=== PATIENT | male | born 1930 | race Caucasian/White ===

== ENCOUNTER 2016-12-10 09:43 | Emergency (ER) | payer OTHER ==
[~2016-12-10] VITALS: Ht 175.3 cm; Wt 83.0 kg
[2016-12-10 09:45] VITALS: BP 186/89; PULSE 85; RESP 18; TEMP 99.2; O2SAT 96
[2016-12-10] MEDS ORDERED: ALLO100T PO (09:58)
[2016-12-10] MEDS ORDERED: ATOR10TA15 PO (09:58)
[2016-12-10] MEDS ORDERED: MULTTAB67 PO (09:58)
[2016-12-10] MEDS ORDERED: LISI-515 PO (09:58)
[2016-12-10 10:45] LABS: BASOPHIL # 0.1 TH/MM3 (0-0.2); BASOPHIL % 1.2 % (0.0-2.0); EOSINOPHIL # 0.3 TH/MM3 (0-0.4); EOSINOPHIL % 4.5 % (0.0-4.0); HEMATOCRIT 49.1 % (39.0-51.0); HEMO FLAGS DIFF FINAL; LYMPH % 18.9 % (9.0-44.0); LYMPHOCYTE # 1.1 TH/MM3 (1.0-4.8); MEAN CELL VOLUME 96.9 FL (80.0-100.0); MEAN CORPUSCULAR HEMOGLOBIN 31.5 PG (27.0-34.0); MEAN CORPUSCULAR HGB CONC 32.5 % (32.0-36.0); MONO % 7.9 % (0.0-8.0); NEUT % 67.5 % (16.0-70.0); PLATELET COUNT 143 TH/MM3 (150-450); RED BLOOD COUNT 5.06 MIL/MM3 (4.50-5.90); RED CELL DISTRIBUTION WIDTH 14.7 % (11.6-17.2)
--- NOTE | 2016-12-10 10:48 | PD ---
HPI . Right inguinal mass Chief Complaint: Flank/Kidney Pain Time Seen by Provider: 10:22 Travel History International Travel<30 days: No Contact w/Intl Traveler<30days: No Traveled to known affect area: No History of Present Illness HPI Patient presents with the chief complaint of a right inguinal mass. He states that he had gotten up during the middle the night to go to the bathroom. When he laid back down on the bed he noticed a mass in the right inguinal area. He states that he mashed on it and that it felt like that it had water in it and that it was moving. He reports no pain associated with it. The patient is also complaining with intermittent bilateral flank pain which is mild and which is relieved by either Tylenol or aspirin. He said he does not currently have flank pain. He is also complaining with symptoms related to BPH. He reports nocturia, decreased urinary volume and the feeling like he is not completely emptying his bladder. He states that he is on medication for this but he did not bring it with him and he does not know the name of it. Lastly, he would like for me to check his legs. They are discolored. They have been this way for a long time. They do not hurt. PFSH Past Medical History High Cholesterol: Yes Diabetes: Yes Patient Takes Glucophage: No Hypertension: Yes Triglycerides - High: Yes Past Surgical History Other Surgery: Yes (CYSTOSCOPY, LITHOTRIPSY?) Social History Alcohol Use: Yes (OCC) Tobacco Use: No Substance Use: No Allergies-Medications (Allergen,Severity, Reaction): Coded Allergies: No Known Allergies (Unverified , 12/10/16) Reported Meds & Prescriptions Reported Meds & Active Scripts Active Reported Multiple Vitamin 1 Tab 1 Tab PO DAILY Atorvastatin (Atorvastatin Calcium) 10 Mg Tab 10 Mg PO HS Allopurinol 100 Mg Tab 100 Mg PO DAILY Lisinopril 20 Mg Tab 20 Mg PO DAILY Review of Systems Except as stated in HPI: all other systems reviewed are Neg General / Constitutional: No: Fever, Chills Gastrointestinal: Positive: Other (right inguinal mass), No: Nausea, Vomiting , Diarrhea, Loss of Appetite Genitourinary: Positive: Urgency, Frequency, Nocturia, Decreased Urinary Output , Hesitancy, Flank Pain, No: Dysuria Skin: Positive Change in Pigmentation Physical Exam Narrative GENERAL: Healthy-appearing elderly man who is in no acute distress. SKIN: Warm and dry. He has skin changes to his lower extremities compatible with peripheral vascular disease. HEAD: Atraumatic. Normocephalic. EYES: Pupils equal and round. Extraocular movements are intact. ENT: No nasal bleeding or discharge. Mucous membranes pink and moist. NECK: Trachea midline. Neck is supple. CARDIOVASCULAR: Regular rate and rhythm. RESPIRATORY: No accessory muscle use. GASTROINTESTINAL: Abdomen soft, non-tender, nondistended. He has an easily reducible right inguinal hernia. It is not tender. MUSCULOSKELETAL: No obvious deformities. No edema. No back tenderness. NEUROLOGICAL: Awake and alert. No obvious cranial nerve deficits. Motor grossly within normal limits. Normal speech. PSYCHIATRIC: Appropriate mood and affect; insight and judgment normal. Data Data Last Documented VS Vital Signs Date Time Temp Pulse Resp B/P Pulse Ox O2 Delivery O2 Flow Rate FiO2 12/10/16 09:54 17 12/10/16 09:45 99.2 85 186/89 96 Room Air Orders Basic Metabolic Panel (Bmp) (12/10/16 09:53) Complete Blood Count With Diff (12/10/16 09:53) Ua Includes Microscopic (12/10/16 09:53) Ct Abd/Pel W/O Iv Contrast (12/10/16 09:53) Labs Laboratory Tests Test 12/10/16 12/10/16 10:15 11:10 White Blood Count 6.0 TH/MM3 Red Blood Count 5.06 MIL/MM3 Hemoglobin 15.9 GM/DL Hematocrit 49.1 % Mean Corpuscular Volume 96.9 FL Mean Corpuscular Hemoglobin 31.5 PG Mean Corpuscular Hemoglobin 32.5 % Concent Red Cell Distribution Width 14.7 % Platelet Count 143 TH/MM3 Mean Platelet Volume 9.9 FL Neutrophils (%) (Auto) 67.5 % Lymphocytes (%) (Auto) 18.9 % Monocytes (%) (Auto) 7.9 % Eosinophils (%) (Auto) 4.5 % Basophils (%) (Auto) 1.2 % Neutrophils # (Auto) 4.0 TH/MM3 Lymphocytes # (Auto) 1.1 TH/MM3 Monocytes # (Auto) 0.5 TH/MM3 Eosinophils # (Auto) 0.3 TH/MM3 Basophils # (Auto) 0.1 TH/MM3 CBC Comment DIFF FINAL Differential Comment Sodium Level 140 MEQ/L Potassium Level 4.3 MEQ/L Chloride Level 106 MEQ/L Carbon Dioxide Level 25.8 MEQ/L Anion Gap 8 MEQ/L Blood Urea Nitrogen 19 MG/DL Creatinine 0.99 MG/DL Estimat Glomerular Filtration 72 ML/MIN Rate Random Glucose 125 MG/DL Calcium Level 9.2 MG/DL Urine Color YELLOW Urine Turbidity CLEAR Urine pH 5.0 Urine Specific [place] 1.017 Urine Protein NEG mg/dL Urine Glucose (UA) NEG mg/dL Urine Ketones NEG mg/dL Urine Occult Blood NEG Urine Nitrite NEG Urine Bilirubin NEG Urine Urobilinogen LESS THAN 2.0 MG/DL Urine Leukocyte Esterase NEG Urine RBC LESS THAN 1 /hpf Urine WBC 1 /hpf Urine Mucus FEW /lpf MDM Medical Decision Making Medical Screen Exam Complete: Yes Emergency Medical Condition: Yes Differential Diagnosis My differential diagnosis of groin pain includes but is not limited to groin strain, lymphadenopathy, hernia, epididymitis, testicular torsion Narrative Course Patient presents with multiple problems. His chief complaint is actually the mass in the right inguinal area which is a hernia. I have ordered a CBC, basic metabolic panel, UA and CT. I anticipate discharge to home with outpatient follow-up with the surgeon. Last Impressions Abdomen/Pelvis CT 12/10/16 0953 Signed Impressions: Service Date/Time: Saturday, December 10, 2016 10:37 - CONCLUSION: 1. There are 3 punctate nonobstructing stone seen in the collecting system of the right kidney. These all measure approximately 1-2 mm in size. 2. There are 3 stones seen within the left kidney as described above. The largest measures 1 cm. 3. Bilateral inguinal hernias larger on the right than the left. 4. Mild enlargement of the prostate. 5. Cardiomegaly. 6. 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 7. Degenerative changes throughout the spine. Kane Johnson MD CBC & BMP Diagram 12/10/16 10:15 UA is negative. Diagnosis Primary Impression: Right inguinal hernia Patient Instructions: General Instructions, Inguinal Hernia (DC) Additional Instructions: Call the [facility] for referral to a general surgeon. Disposition: 01 DISCHARGE HOME Condition: Stable Suma Coto MD Dec 10, 2016 10:48
[2016-12-10 10:55] LABS: BICARBONATE 25.8 MEQ/L (21.0-32.0); POTASSIUM 4.3 MEQ/L (3.5-5.1)
--- NOTE | 2016-12-10 11:03 | RADRPT ---
EXAM DATE/TIME: 12/10/2016 10:37 [facility] COMPARISON: No previous studies available for comparison. INDICATIONS : Intermittent bilateral flank pain for six months, now complains of urinary urgency. ORAL CONTRAST: No oral contrast ingested. RADIATION DOSE: 9.96 CTDIvol (mGy) MEDICAL HISTORY : Hypertension. Diabetes mellitus type 2. SURGICAL HISTORY : Lithotripsy. ENCOUNTER: Initial ACUITY: 1 week PAIN SCALE: 4/10 LOCATION: Bilateral flank TECHNIQUE: Volumetric scanning of the abdomen and pelvis was performed. Using automated exposure control and ad justment of the mA and/or kV according to patient size, radiation dose was kept as low as reasonably achievable to obtain optimal diagnostic quality images. FINDINGS: The limited portion of lung base visualized demonstrate COPD changes but is otherwise clear. There is mild cardiomegaly. Right kidney/ureter: The right kidney is normal in size. There is no hydronephrosis. There are 3 punctate stones seen with in the collecting system. The largest measures approximately 1 mm. The right ureter is followup right its course and is normal in caliber. Left kidney/ureter: There are multiple stones identified within the collecting system of the left kidney. There is a 9 mm stone in the upper pole. There is a 1 cm stone in the midpole and a 4 mm stone in the lower pole. Th e left ureter is followed throughout its course and is unremarkable in appearance. Bladder: No stones are seen within the bladder. CT source data: The appearance of the liver, spleen, pancreas and adrenal glands is within normal limits. There are m ultiple calcified gallstones within the gallbladder. There is no retroperitoneal lymphadenopathy. No free fluid is identified. There is no iliac or inguinal adenopathy. The prostate is mildly enlarged. There are bilateral inguinal hernias. There are degenerative changes within the spine. CONCLUSION: 1. There are 3 punctate nonobstructing stone seen in the collecting system of the right kidney. These all measure approximately 1-2 mm in size. 2. There are 3 stones seen within the left kidney as described above. The largest measures 1 cm. 3. Bilateral inguinal hernias larger on the right than the left. 4. Mild enlargement of the prostate. 5. Cardiomegaly. 6. 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 7. Degenerative changes throughout the spine. Kane Johnson MD on December 10, 2016 at 10:58 Board Certified Radiologist. This report was verified electronically.
[2016-12-10 11:34] LABS: BLOOD, URINE NEG (NEG); GLUCOSE,URINE NEG (NEG); KETONE, URINE NEG (NEG); MUCUS URINE FEW /lpf (OCC); NITRITE,URINE NEG (NEG); URINE COLOR YELLOW (YELLW/STRAW)
== END 2016-12-10 12:02 | disposition home or self-care (01) ==
LOC: NEPD 09:43
DX: K40.90 Unilateral inguinal hernia, without obstruction or gangrene, not specified as recurrent (principal); R10.31 Right lower quadrant pain; N40.0 Benign prostatic hyperplasia without lower urinary tract symptoms; I51.7 Cardiomegaly; J44.9 Chronic obstructive pulmonary disease, unspecified; E78.00 Pure hypercholesterolemia, unspecified; E11.9 Type 2 diabetes mellitus without complications; I10 Essential (primary) hypertension
CPT/HCPCS: 74176; 80048; 81001; 85025; 99284